=== PATIENT | male | born 1965 | race Caucasian/White ===

== ENCOUNTER 2016-12-01 16:29 | Emergency (ER) | payer OTHER ==
[~2016-12-01] VITALS: Ht 180.3 cm; Wt 100.0 kg
[~2016-12-01 16:29] MED LIST: ATEN50TA PO; LISI10TA3 PO; PERC5TAB12 PO
[2016-12-01 16:31] VITALS: BP 150/95; PULSE 126; RESP 15; TEMP 97.6; O2SAT 99
--- NOTE | 2016-12-01 21:20 | EKG ---
Date Performed: 12/01/2016 Time Performed: 20:01:51 PTAGE: 51 years EKG: SINUS TACHYCARDIA WITH OCCASIONAL ECTOPIC PREMATURE COMPLEXES MARKED LEFT AXIS DEVIATION AB NORMAL ECG PREVIOUS TRACING : 03/22/2007 22.34 Rate increased with rare PAC DOCTOR: Vineet Garcia Interpretating Date/Time 12/01/2016 21:18:56
[2016-12-02] MEDS ORDERED: oxyCODONE/ACETAMINOPHEN 5 MG/325 MG TAB PO ONE (01:00)
[2016-12-02] MEDS ORDERED: SILVER SULFADIAZINE 1% CR 400 GM JAR TOPICAL ONE (01:00)
[2016-12-02] MEDS ORDERED: CEPHALEXIN MONOHYDRATE 500 MG CAP PO ONE (01:00)
[2016-12-02] MEDS ORDERED: SULFAMETHOXAZOLE-TRIMETHOPRIM DS 800-160 MG TAB PO ONE (01:00)
[2016-12-02] MEDS ORDERED: BACT800T5 PO (01:26)
[2016-12-02] MEDS ORDERED: CEPH-460 PO (01:26)
[2016-12-02] MEDS ORDERED: PERC5TAB12 PO (01:26)
[2016-12-02] MEDS ORDERED: IBUP-232 PO (01:26)
[2016-12-02] MEDS ORDERED: SILV1CRE20 TOPICAL (01:27)
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
[2016-12-02 02:06] VITALS: BP 140/79
== END 2016-12-02 02:08 | disposition home or self-care (01) ==
LOC: NEPE 16:29
DX: T52.4X1A Toxic effect of ketones, accidental (unintentional), initial encounter (principal); T25.61 Corrosion of second degree of ankle; L03.116 Cellulitis of left lower limb; R00.0 Tachycardia, unspecified; R94.31 Abnormal electrocardiogram [ECG] [EKG]; Y92.814 Boat as the place of occurrence of the external cause
CPT/HCPCS: 16020; 93005

== ENCOUNTER 2016-12-05 22:32 | Emergency (ER) | payer OTHER ==
[~2016-12-05] VITALS: Ht 180.3 cm; Wt 98.0 kg
[~2016-12-05 22:32] MED LIST changes: +BACT800T5 PO; +CEPH-460 PO; +IBUP-232 PO; +SILV1CRE20 TOPICAL
[2016-12-05 22:35] VITALS: BP 131/92; PULSE 112; RESP 16; TEMP 98.3; O2SAT 100
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
[2016-12-06] MEDS ORDERED: IBUP-232 PO (03:25)
[2016-12-06] MEDS ORDERED: PERC5TAB12 PO (03:25)
[2016-12-06] MEDS ORDERED: ATENOLOL 50 MG TAB PO ONE (03:30)
[2016-12-06] MEDS ORDERED: oxyCODONE/ACETAMINOPHEN 5 MG/325 MG TAB PO ONE (03:30)
[2016-12-06] MEDS ORDERED: LISINOPRIL 10 MG TAB PO ONE (03:30)
[2016-12-06] MEDS ORDERED: SILVER SULFADIAZINE 1% CR 50 GM JAR TOPICAL ONE (03:30)
== END 2016-12-06 04:04 | disposition home or self-care (01) ==
LOC: NEPB 22:32
DX: T25.61 Corrosion of second degree of ankle (principal); I10 Essential (primary) hypertension; Z87.442 Personal history of urinary calculi
CPT/HCPCS: 99282

== ENCOUNTER 2016-12-10 15:06 | Emergency (ER) | payer OTHER ==
[~2016-12-10] VITALS: Ht 180.3 cm; Wt 100.0 kg
[2016-12-10 15:08] VITALS: BP 145/100; PULSE 129; RESP 18; TEMP 98; O2SAT 96
[2016-12-10] MEDS ORDERED: NAPR500T PO (17:12)
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
== END 2016-12-10 17:32 | disposition home or self-care (01) ==
LOC: NEPB 15:06
DX: T25.012D Burn of unspecified degree of left ankle, subsequent encounter (principal); M25.572 Pain in left ankle and joints of left foot; I10 Essential (primary) hypertension; Z87.442 Personal history of urinary calculi
CPT/HCPCS: 99283

== ENCOUNTER 2017-05-01 22:33 | Emergency (ER) | payer OTHER ==
[~2017-05-01] VITALS: Ht 180.3 cm; Wt 100.0 kg
[~2017-05-01 22:33] MED LIST changes: +NAPR500T PO
[2017-05-01 22:36] VITALS: BP 193/104; PULSE 98; RESP 16; TEMP 97.7; O2SAT 97
[2017-05-01] MEDS ORDERED: oxyCODONE/ACETAMINOPHEN 10 MG/325 MG TAB PO ONE (23:15)
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
[2017-05-02] MEDS ORDERED: HYDROmorphone HCL PF 1 MG/ML VIAL IV PUSH ONE (00:15)
[2017-05-02] MEDS ORDERED: PERC5TAB12 PO (01:55)
[2017-05-02] MEDS ORDERED: CEPH-460 PO (01:57)
[2017-05-02] MEDS ORDERED: BACITRACIN TOP OINT 15 GM TUBE TOPICAL ONE (02:00)
== END 2017-05-02 02:16 | disposition home or self-care (01) ==
LOC: NEPC 22:33
DX: T23.69 Corrosion of second degree of multiple sites of wrist and hand (principal); I47.1 Supraventricular tachycardia; I10 Essential (primary) hypertension; Z87.442 Personal history of urinary calculi; T52.4X1A Toxic effect of ketones, accidental (unintentional), initial encounter; Y92.89 Other specified places as the place of occurrence of the external cause
CPT/HCPCS: 96374; 99284; J1170